=== PATIENT | female | born 1975 | race Caucasian/White ===

== ENCOUNTER → 2021-01-30 13:51 | Outpatient (CLI) | payer BC, SELFPAY ==
--- NOTE | ~2021-01-30 | XR_ITS ---
EXAMINATION: XR fl inj shoulder LT - MR/CT DATE: 01/30/2021 14:40 INDICATION: Left shoulder pain. Left glenoid labrum injury. No prior dislocation or surgery. TECHNIQUE: A time-out was performed to verify the patient's name, date of , and procedure to b e performed. The procedure including the risks, benefits, and alternatives was discussed with the pat ient. Risks discussed included bleeding and infection. The patient understood the risks and agreed to proceed. The skin overlying the left glenohumeral joint was prepped and draped in usual sterile fash ion. Anesthetic was administered with 1% lidocaine subcutaneously. A 22 G needle was advanced under fluoroscopic guidance into the joint. Subsequently, injectate consisting of 12 mL of 1:200 Multihan ce, 1:4 1% lidocaine, and 1:4 Omnipaque 240 was instilled. The needle was removed and the entry site was cleaned and dressed. There were no immediate complications. Fluoroscopy exposure time was 0.1 m inutes. The total number of images was 3. FINDINGS: Real-time fluoroscopy demonstrates the needle and contrast in the left glenohumeral joint. IMPRESSION: 1. Successful left glenohumeral joint injection of contrast for subsequent MR arthrography. Reviewed, dictated and finalized at location B. IMPRESSION: 1. Successful left glenohumeral joint injection of contrast for subsequent MR a rthrography.
--- NOTE | ~2021-01-30 | MR_ITS ---
EXAMINATION: MR shoulder LT w con DATE: 01/30/2021 15:18 INDICATION: Injury to the left glenoid labrum TECHNIQUE: Magnetic resonance imaging (MRI) of the left shoulder was performed following intra-artic ular gadolinium contrast injection and without intravenous contrast. Details of the glenohumeral join t injection have been dictated separately. Sequences included axial T2-weighted FS FSE, axial T1-gemma ghted FS FSE, coronal oblique T1-weighted FS FSE, coronal oblique T2-weighted FSE, sagittal T2-weight ed FS FSE, sagittal T1-weighted FSE, and ABER (abduction external rotation) T1-weighted FS FSE. COMPARISON: None. FINDINGS: Coracoacromial arch: The acromion undersurface is flat in morphology (type I). The coracoacromial ligament is normal. Acro mioclavicular joint is normal. Rotator cuff: The supraspinatus, infraspinatus and teres minor are normal. The subscapularis is normal. Normal rota tor cuff muscle bulk and signal. Biceps tendon, glenoid labrum and glenohumeral cartilage: There are 3 separate components to the extra articular long head biceps tendon. This could represent a longitudinal split tear however appears more likely to represent a pair of accessory heads, one ext ending to the medial footplate of the biceps lea sling at the cephalad medial rim of the intertube rcular groove and the second extending to the cephalad margin of the lateral rim. Glenoid labrum and glenohumeral cartilage are normal. Bones and other: Normal marrow signal with no edema, fracture or abnormal marrow replacing process. No abnormal fluid signal in the subacromial/subdeltoid bursa to suggest bursitis. IMPRESSION: 1. Extra articular long head biceps tendon is divided into 3 parts which could represent longitudinal split tear however trajectory of 2 of the components towards the medial and lateral insertions of th e biceps lea sling suggests this more likely represents a normal anatomic variant with a pair of a ccessory heads of the long head biceps tendon. Reviewed, dictated and finalized at location A. IMPRESSION: 1. Extra articular long head biceps tendon is divided into 3 parts which could represent longitudinal split tear however trajectory of 2 of the components tow ards the medial and lateral insertions of the biceps lea sling suggests this more likely represents a normal anatomic variant with a pair of accessory head s of the long head biceps tendon.
== END ==
PROVIDERS: Visit Provider Internal Medicine
DX: S46.012A Strain of muscle(s) and tendon(s) of the rotator cuff of left shoulder, initial encounter (principal); X58.XXXA Exposure to other specified factors, initial encounter
CPT/HCPCS: 23350; 73222; A9577; Q9966